=== PATIENT | female | born 1995 | race Caucasian/White ===

== ENCOUNTER 2017-07-23 14:55 | Emergency (ER) | payer OTHER ==
[~2017-07-23] VITALS: Ht 170.2 cm; Wt 86.6 kg
[~2017-07-23 14:55] MED LIST: CLONIDINE HCL0.1 MG PO; ORTHO CYCLEN1 TABLET PO; VYVANSE70 MG PO
[2017-07-23 15:52] LABS: HEMATOCRIT 40.3 % (36.0-46.0); HEMOGLOBIN 13.6 G/DL (11.9-15.5); MCH 29.4 PG (29.0-34.0); MCHC 33.7 G/DL (30.0-36.0); PLATELET COUNT 293 K/uL (156-360); RBC DIS.WIDTH-SD 41.1 % (39-53); RED BLOOD COUNT 4.63 M/uL (3.80-5.20); WHITE BLOOD COUNT 11.7 K/uL (4.1-10.2)
[2017-07-23 16:01] LABS: CHLORIDE 108 mEq/L (99-109); POTASSIUM 4.5 mEq/L (3.7-5.4); SODIUM 142 mEq/L (136-147)
[2017-07-23 16:03] LABS: GLUCOSE 92 mg/dL (70-99); TOTAL PROTEIN 7.3 g/dL (6.4-8.3)
[2017-07-23 16:05] LABS: TOTAL BILIRUBIN 0.2 mg/dL (0.0-1.0)
[2017-07-23 16:06] LABS: ALKALINE PHOSPHATASE 84 IU/L (3-129)
[2017-07-23 16:07] LABS: CREATININE 0.9 mg/dL (0.6-1.3); GFR ESTIMATE (CALCULATED) > 59 mL/min/
[2017-07-23 16:08] LABS: UREA NITROGEN (BUN) 11 mg/dL (9-23)
[2017-07-23 16:09] LABS: AST (GOT) 17 IU/L (2-34)
[2017-07-23 16:10] LABS: ALT (GPT) 15 IU/L (3-49)
[2017-07-23 16:41] LABS: APPEARANCE SL.HAZY ((CLEAR)); BILIRUBIN NEGATIVE; BLOOD NEGATIVE; COLOR AMBER ((YELLOW)); GLUCOSE (STRIP) NEGATIVE; KETONES NEGATIVE; LEUKOCYTES NEGATIVE; NITRITE NEGATIVE; PROTEIN (STRIP) 30; SPECIFIC GRAVITY 1.035 (1.000-1.030); UROBILINOGEN 0.2 MG/DL (0.2-1.0)
[2017-07-23 17:18] LABS: BACTERIA 1+ /HPF; EPITHELIAL CELLS 1+ /HPF; MUCUS 2+ /LPF; RED BLOOD CELLS 0-5 /HPF (0-5); UCUL ADDED? NO; WHITE BLOOD CELLS 0-5 /HPF (0-5)
[2017-07-23 18:33] VITALS: BP 126/77
== END 2017-07-23 18:54 | disposition home or self-care (01) ==
LOC: EME 14:55
PROVIDERS: Emergency Medicine
DX: S60.211A Contusion of right wrist, initial encounter (principal); V47.0XXA Car driver injured in collision with fixed or stationary object in nontraffic accident, initial encounter; W22.11XA Striking against or struck by driver side automobile airbag, initial encounter; Y92.410 Unspecified street and highway as the place of occurrence of the external cause; F90.9 Attention-deficit hyperactivity disorder, unspecified type; F84.5 Asperger's syndrome
CPT/HCPCS: 71045; 80053; 81003; 85027; 99281; 99285